=== PATIENT | female | born 1935 | race Caucasian/White ===

== ENCOUNTER → 2017-02-01 | Outpatient (CLI) | payer MEDICARE, BC ==
[~2017-02-01] MED LIST: UNABLE
== END ==
LOC: MC.RAD 15:10
DX: Z12.31 Encounter for screening mammogram for malignant neoplasm of breast (principal)

== ENCOUNTER → 2017-05-10 | Outpatient (CLI) | payer MEDICARE, BC | LOC: COL.RAD 07:54 | DX: J43.9 Emphysema, unspecified (principal); N28.1 Cyst of kidney, acquired; K57.30 Diverticulosis of large intestine without perforation or abscess without bleeding; Z96.641 Presence of right artificial hip joint | CPT/HCPCS: Q9967 ==

== ENCOUNTER → 2018-03-15 | Outpatient (CLI) | payer MEDICARE, BC | LOC: MC.RAD 09:00 | DX: Z12.31 Encounter for screening mammogram for malignant neoplasm of breast (principal) ==

== ENCOUNTER 2018-08-14 21:11 | Emergency (ER) | payer MEDICARE, BC ==
[~2018-08-14] VITALS: Ht 162.6 cm; Wt 60.5 kg
[2018-08-14 21:17] VITALS: TEMP 97.7
[2018-08-14 22:04] LABS: BASO # 0.1 (0.0-0.2); BASO % 0.7 % (0.0-2.0); EOS # 0.1 (0.0-0.7); EOS % 1.3 % (0-4.0); GRAN # 6.1 (1.4-6.5); GRAN % 73.8 % (42.2-75.2); HEMATOCRIT 42.5 % (37.0-47.0); HEMOGLOBIN 14.3 g/dl (12.5-16.0); LYMPH # 1.2 (1.2-3.4); LYMPH % 14.5 % (20.0-51.0); MEAN CELL VOLUME 95 fl (80.0-100.0); MEAN CORPUSCULAR HEMOGLOBIN 32 pg (27.0-31.0); MEAN CORPUSCULAR HGB CONC 34 g/dl (33.0-37.0); MEAN PLATELET VOLUME 9.2 fl (7.4-10.4); MONO # 0.8 (0.1-0.6); MONO % 9.3 % (1.7-9.3); PLATELET COUNT 201 K/mm3 (130-400); RED BLOOD COUNT 4.49 M/mm3 (4.10-5.30); REDCELL DISTRIBUTION WIDTH-CV 12.2 % (11.5-14.5)
[2018-08-14 22:14] LABS: PROTHROMBIN TIME 11.4 SECONDS (9.7-12.8)
[2018-08-14 22:17] LABS: ALANINE AMINOTRANSFERASE 33 U/L (9-52); ALKALINE PHOSPHATASE 39 U/L (50-136); ANION GAP 10 mmol/L (7-16); AST,SGOT 30 U/L (15-37); BILIRUBIN,TOTAL 0.3 mg/dL (0.0-1.0); BLOOD UREA NITROGEN 27 mg/dL (7-17); CALCIUM 9.3 mg/dL (8.4-10.2); CARBON DIOXIDE 34 mmol/L (22-30); CHLORIDE 94 mmol/L (98-107); CREATININE, serum 0.61 mg/dL (0.52-1.25); GLUCOSE 127 mg/dL (74-106); POTASSIUM 3.7 mmol/L (3.4-5.0); SODIUM 138 mmol/L (137-145); TOTAL PROTEIN 6.9 gm/dL (6.4-8.2)
[2018-08-14 22:41] LABS: TROPONIN-I < 0.012 ng/mL (0.000-0.034)
[2018-08-14] MEDS ORDERED: ATIVAN 0.50.5 MG/TAB PO (23:30)
[2018-08-14] MEDS ORDERED: ANORO IH (23:30)
[2018-08-15] MEDS ORDERED: ZOCOR 20MG20 MG PO (00:10)
[2018-08-15] MEDS ORDERED: DETROL 2MG TAB2 MG PO (00:10)
[2018-08-15] MEDS ORDERED: AMILORIDE/HCTZ1 TAB PO (00:10)
[2018-08-15] MEDS ORDERED: IMDUR 60MG60 MG/TAB PO (00:11)
[2018-08-15] MEDS ORDERED: CARDIZEM CD 18180 MG PO (00:11)
[2018-08-15] MEDS ORDERED: ULTRAM 50MG TAB50 MG PO (00:12)
[2018-08-15] MEDS ORDERED: FOSAMAX 70MG TA70 MG PO (00:12)
[2018-08-15 00:40] VITALS: BP 126/72; PULSE 86
== END 2018-08-15 00:53 | disposition home or self-care (01) ==
LOC: COL.ER 21:11
PROVIDERS: Emergency Medicine
DX: R53.81 Other malaise (principal); R53.83 Other fatigue; T42.4X5A Adverse effect of benzodiazepines, initial encounter; J44.9 Chronic obstructive pulmonary disease, unspecified; E78.5 Hyperlipidemia, unspecified; I10 Essential (primary) hypertension; I25.10 Atherosclerotic heart disease of native coronary artery without angina pectoris; Z98.890 Other specified postprocedural states
CPT/HCPCS: J7030

== ENCOUNTER → 2018-08-23 | Outpatient (CLI) | payer MEDICARE, BC ==
[~2018-08-23] MED LIST changes: +AMILORIDE/HCTZ1 TAB PO; +ANORO IH; +ATIVAN 0.50.5 MG/TAB PO; +CARDIZEM CD 18180 MG PO; +DETROL 2MG TAB2 MG PO; +FOSAMAX 70MG TA70 MG PO; +IMDUR 60MG60 MG/TAB PO; +ULTRAM 50MG TAB50 MG PO; +ZOCOR 20MG20 MG PO
== END ==
LOC: COL.RAD 10:50
DX: I67.1 Cerebral aneurysm, nonruptured (principal)
CPT/HCPCS: Q9967

== ENCOUNTER → 2019-02-11 | Outpatient (CLI) | payer MEDICARE, BC ==
[~2019-02-11] MED LIST changes: +ASPI325T6 PO; +CLARITIN-D 10 M1 T24 PO; +COLACE 100100 MG/CAP PO; +CRANBERRY FRUI425 MG PO; +K-DUR 10 MEQ T10 MEQ PO; +LANOXIN 0.120.125 MG PO; +LASIX 20MG TABL20 MG PO; +MASON NATURAL2000 IU PO; +MELATIN 3 MG-11 TAB PO; +THEO-24 20200 MG/CAP PO; +ZOCOR 40MG40 MG PO
== END ==
LOC: COL.CARD 08:20
DX: R55 Syncope and collapse (principal)

== ENCOUNTER 2019-02-26 07:26 | Inpatient (IN) | payer MEDICARE, BC ==
[~2019-02-26] VITALS: Ht 160 cm; Wt 53.2 kg
[2019-02-26] VITALS (20 sets, daily range): BP systolic 102–145; BP diastolic 41–110; PULSE 55–162; TEMP 98–98.4
[2019-02-26 08:15] LABS: HEMATOCRIT 45.7 % (37.0-47.0); HEMOGLOBIN 15.5 g/dl (12.5-16.0); MEAN CELL VOLUME 93 fl (80.0-100.0); MEAN CORPUSCULAR HEMOGLOBIN 31 pg (27.0-31.0); MEAN CORPUSCULAR HGB CONC 34 g/dl (33.0-37.0); MEAN PLATELET VOLUME 9.6 fl (7.4-10.4); PLATELET COUNT 217 K/mm3 (130-400); RED BLOOD COUNT 4.93 M/mm3 (4.10-5.30); REDCELL DISTRIBUTION WIDTH-CV 12.3 % (11.5-14.5)
[2019-02-26 08:19] LABS: INR 1.6 (0.8-3.0); PROTHROMBIN TIME 18.2 SECONDS (9.7-12.8)
[2019-02-26] MEDS ORDERED: OSCAL 500 TAB500 MG PO (08:25)
[2019-02-26] MEDS ORDERED: ASPI325T6 PO (08:25)
[2019-02-26] MEDS ORDERED: BIOTIN2500 MCG PO (08:26)
[2019-02-26] MEDS ORDERED: B-121000 MCG PO (08:27)
[2019-02-26] MEDS ORDERED: VITAMIN C500 MG PO (08:28)
[2019-02-26 08:29] LABS: CREATININE, serum 0.91 (0.52-1.25); POTASSIUM 3.2 mmol/L (3.4-5.0)
[2019-02-26 08:59] LABS: THYROID STIMULATING HORMONE 0.192 uIU/mL (0.465-4.680)
[2019-02-26 09:21] LABS: ALBUMIN 4.2 gm/dL (3.5-5.0); BILIRUBIN UNCONJUGATED 0.6 mg/dL (0.0-1.1); BILIRUBIN,DIRECT 0.1 mg/dL (0.0-0.4); BILIRUBIN,TOTAL 0.7 mg/dL (0.0-1.0); TOTAL PROTEIN 7.5 gm/dL (6.4-8.2)
--- NOTE | 2019-02-26 11:00 | NUR ---
Fatoumata GARCIA recieved call fro Telemetry of pt pulse rate in 150's. Betapace had been given 20 minutes prior. Pt sitting up in bed . Denies distress. Checked all connections on pulse monitor.
--- NOTE | 2019-02-26 11:20 | NUR ---
Telemetry called and pulse rate unchanged , remains 130' to 160's. Notifing Dr. Ellis.
--- NOTE | 2019-02-26 11:35 | NUR ---
240 mg Cardizem CD given. Will continue to monitor.
--- NOTE | 2019-02-26 12:05 | NUR ---
Pulse rate down to 89 bpm. Will continue to monitor
--- NOTE | 2019-02-26 14:34 | NUR ---
RECEIVED REPORT FROM JOSE DESIR.
--- NOTE | 2019-02-26 14:53 | NUR ---
PT ARRIVED TO ROOM VIA WHEELCHAIR,ACCOMAPNIED BY SHARIF AND JOSE DESIR.PT RESTING IN BED AT THIS TIME.CALL LIGHT IN PLACE.
--- NOTE | 2019-02-26 14:53 | NUR ---
Report given to Bhavana GARCIA. Transferred to Room 309 by wc on telemetry
--- NOTE | 2019-02-26 17:03 | NUR ---
ASSESSMENT COMPLETE,PATIENT AWAKE,A/OX4.DENIES PAIN OR DISCOMFORT AT THIS TIME.LUNG SOUNDS DIMINISHED THROUGHOUT.PULSES PRESENT AND PALPABLE.IV TO RAC INT.PT ON TELE RUNNING SINUS RYTHM AT THIS TIME.STARTED ON SOTALOL D/T FAILED CARDIOVERSION.PT IS AMBULATORY.SBA.ALL MEDS GIVEN.DENIES ANY NEED AT THIS TIME.WILL CONTINUE TO MONITOR.CALL LIGHT IN REACH
--- NOTE | 2019-02-26 19:39 | NUR ---
REPORT GIVEN TO JOSE LOCK
--- NOTE | 2019-02-26 20:15 | NUR ---
Shift assessment complete. Pt resting in bed, awake, a&o, cooperative c cares. Da at bedside. Pt c/o chronic back pain; PRN Tramadol admin per pt request. Denies any other c/o. INT patent. Tele in place. Pt s needs. Call light in reach, will monitor.
[2019-02-26 22:31] LABS: PH 6 (5-8); SQUAMOUS EPITHELIAL 0-2 /hpf; URINE APPEARANCE Clear; URINE BACTERIA None Seen /hpf; URINE BILIRUBIN Negative (NEGATIVE); URINE BLOOD Negative (NEGATIVE); URINE COLOR Yellow; URINE GLUCOSE Negative (NEGATIVE); URINE KETONE Negative (NEGATIVE); URINE LEUKOCYTE ESTERASE Negative (NEGATIVE); URINE NITRATE Negative (NEGATIVE); URINE PROTEIN(semi-quant) Negative (NEGATIVE); URINE RBC 0-2 /hpf; URINE UROBILINOGEN Negative (NEGATIVE)
[2019-02-26 22:57] LABS: COLLECTION METHOD CLEAN CATCH
[2019-02-27 03:47] VITALS: BP 109/50; PULSE 54; TEMP 97.6
[2019-02-27 06:47] LABS: BASO # 0.1 (0.0-0.2); BASO % 0.4 % (0.0-2.0); EOS # 0.1 (0.0-0.7); EOS % 0.6 % (0-4.0); GRAN # 11.6 (1.4-6.5); GRAN % 81.5 % (42.2-75.2); HEMATOCRIT 39.6 % (37.0-47.0); LYMPH # 1.4 (1.2-3.4); MEAN CELL VOLUME 93 fl (80.0-100.0); MEAN CORPUSCULAR HEMOGLOBIN 31 pg (27.0-31.0); MEAN CORPUSCULAR HGB CONC 34 g/dl (33.0-37.0); MEAN PLATELET VOLUME 9.6 fl (7.4-10.4); MONO % 7.1 % (1.7-9.3); PLATELET COUNT 199 K/mm3 (130-400); RED BLOOD COUNT 4.28 M/mm3 (4.10-5.30); REDCELL DISTRIBUTION WIDTH-CV 12.3 % (11.5-14.5)
[2019-02-27 06:51] LABS: HEMOGLOBIN 13.4 g/dl (12.5-16.0)
[2019-02-27 07:01] LABS: ALBUMIN 3.5 gm/dL (3.5-5.0); BILIRUBIN,TOTAL 0.6 mg/dL (0.0-1.0); CALCIUM 9.7 mg/dL (8.4-10.2); CREATININE, serum 0.82 (0.52-1.25); MAGNESIUM 1.7 mg/dL (1.6-2.3); POTASSIUM 3.2 mmol/L (3.4-5.0); TOTAL PROTEIN 6.3 gm/dL (6.4-8.2)
[2019-02-27 07:21] VITALS: BP 122/54; PULSE 54; TEMP 97.7
--- NOTE | 2019-02-27 10:00 | NUR ---
Patient assessment complete. Patient laying in bed upon entry. Lung sounds diminished throughout. Heart sounds normal, bradycardia, asymptomatic. Pulses strong bilaterally. Bowel sounds present X4. Patient denies SOB, chest pain, dizziness, N/V. patient is A&O. INT RAC shows no redness, drainage or edema. Overall, patient is agitated with stay and how it is progressing. Patient asked multiple times when she would get her morning inhaler. This nurse called RT, Ora, I was informed she was waiting on pharmacy to bring up inhaler after labeling. Patient was not satisfied with answer. Morning meds were late due to waiting on ECG for QTC. heart rate was high 40s, low 50s. Confirmed with Dr. Ellis to give sotalol. Tele parameters were changed, notify if below 30. Dr. Ellis in room to talk to patient. Denies other needs at this time.
--- NOTE | 2019-02-27 11:34 | NUR ---
EMY met with the patient and patient's friend, Cyndy, to discuss discharge plan. The patient lives alone in [place]. She states that her daughter, Breanne, lives in town. She reports independence with ADLs and has a walker. The patient's PCP is Dr. Yevgeniy Santos and she receives her medications at [facility]. She reports no difficulties obtaining her meds. The patient's friend provided EMY with the patient's DPOA-HC and living will. EMY placed a copy of them in her chart. The patient plans to return home upon discharge and then travel down to [place] to see her son. No additional needs at this time.
[2019-02-27 11:42] VITALS: BP 128/44; PULSE 96; TEMP 98.3
--- NOTE | 2019-02-27 12:45 | NUR ---
Patient had loop recorder placed by Dr. Ellis. Site is covered with gauze, CDI, no bleeding. Denies other needs at this time.
--- NOTE | 2019-02-27 14:45 | NUR ---
Initial visit; Patient and family thanked [employer] for looking in on her, offering encouragement and prayer.
[2019-02-27 16:03] VITALS: BP 110/50; PULSE 108; TEMP 98.4
[2019-02-27 19:01] VITALS: BP 121/47; PULSE 55; TEMP 97.1
--- NOTE | 2019-02-27 19:06 | NUR ---
Patient laying in bed, eating dinner. Patient has had uneventful day after loop recorder placement. No complaints of pain, requested warm blankets and napped this afternoon. Family in and out of room. Loop recorder site is CDI, no bleeding. Denies other needs at this time. Report given to JOSE Demarco.
[2019-02-27 23:20] VITALS: BP 109/44; PULSE 52; TEMP 98.5
--- NOTE | 2019-02-27 23:25 | NUR ---
Completed medication administration and assessment; PT A&Ox4, BS active x4, continues 3L O2 via NC, initated Eliquist VTE, provided requested Melatonin 3mg at HS per request, cardioversion unsuccessful x3; Continues Sotalol, Day 2; PT denies pain at time of assessment; No further assessment or reported needs at time of exit; PT assisted to comfortable position in bed with personal items and call light within reach; Will continue to monitor. CDA
--- NOTE | 2019-02-28 02:05 | NUR ---
PT resting well in bed; No further assessed concerns during rounds throughout the evening; PT in a comfortable position with personal items and call light within reach; Will continue to monitor. CDA
[2019-02-28 03:58] VITALS: BP 138/61; PULSE 53; TEMP 98
[2019-02-28 05:59] LABS: BASO # 0.1 (0.0-0.2); BASO % 0.4 % (0.0-2.0); EOS # 0.1 (0.0-0.7); EOS % 1.2 % (0-4.0); GRAN # 9.3 (1.4-6.5); GRAN % 77.9 % (42.2-75.2); HEMATOCRIT 39.7 % (37.0-47.0); HEMOGLOBIN 13.4 g/dl (12.5-16.0); LYMPH # 1.3 (1.2-3.4); LYMPH % 10.5 % (20.0-51.0); MEAN CELL VOLUME 93 fl (80.0-100.0); MEAN CORPUSCULAR HEMOGLOBIN 31 pg (27.0-31.0); MEAN CORPUSCULAR HGB CONC 34 g/dl (33.0-37.0); MEAN PLATELET VOLUME 9.6 fl (7.4-10.4); MONO # 1.1 (0.1-0.6); MONO % 9.6 % (1.7-9.3); PLATELET COUNT 193 K/mm3 (130-400); RED BLOOD COUNT 4.27 M/mm3 (4.10-5.30)
[2019-02-28 06:12] LABS: CALCIUM 9.2 mg/dL (8.4-10.2); CREATININE, serum 0.76 (0.52-1.25); MAGNESIUM 1.7 mg/dL (1.6-2.3)
--- NOTE | 2019-02-28 06:55 | NUR ---
Report received from JOSE Demarco.
--- NOTE | 2019-02-28 06:55 | NUR ---
Report given to JOSE Boyd; No significant changes or concerns at time of shift change. CDA
[2019-02-28 07:47] VITALS: BP 130/49; PULSE 59; TEMP 97.3
--- NOTE | 2019-02-28 08:00 | NUR ---
Assessment completed. Pt finished her breakfast. No complaints at this time. Drsg on chest c/d/i. Discussed POC r/t all meds this shift. Pt verbalized understanding. Call light in reach.
[2019-02-28 11:10] VITALS: BP 112/44; PULSE 49; TEMP 97.5
--- NOTE | 2019-02-28 11:30 | NUR ---
Pt's son at bedside. Updated on pt status. Pt refused bath at this time. Would like to wait for Production Tech to see if she will be discharged today. Pt ordered lunch. C/o some anxiety. States she takes ativan at home.
--- NOTE | 2019-02-28 12:40 | NUR ---
Pt finishing lunch. Pt's son at bedside. Pt states she feels fine after prn ativan given. Call light in reach.
[2019-02-28] MEDS ORDERED: ELIQUIS 2.5 PO (14:55)
[2019-02-28] MEDS ORDERED: NORVASC 5MG5 MG/TAB PO (14:57)
--- NOTE | 2019-02-28 17:00 | NUR ---
Dicharge paperwork discussed with pt and pt's son. Answered all questions to pt's satisfaction. Pt signed discharge papers. heart monitor leads taken off pt. Pt left unit, with son, to private vehicle via wheelchair.
== END 2019-02-28 17:00 | disposition home or self-care (01) | DRG 261 ==
LOC: COL.CAR 07:26 → MEDICAL 14:53 → COL.CAR 15:19 → MEDICAL 15:20
PROVIDERS: Nurse Practitioner; Physician Assistant; ADMIT Internal Medicine Cardiovascular Disease
PROC: 5A2204Z Restoration of Cardiac Rhythm, Single (ICD-10-PCS; 2019-02-26)
PROC: 0JH602Z Insertion of Monitoring Device into Chest Subcutaneous Tissue and Fascia, Open Approach (ICD-10-PCS; principal; 2019-02-27)
DX: I48.0 Paroxysmal atrial fibrillation (principal); R64 Cachexia; E46 Unspecified protein-calorie malnutrition; E87.1 Hypo-osmolality and hyponatremia; Z68.20 Body mass index [BMI] 20.0-20.9, adult; Z66 Do not resuscitate; I10 Essential (primary) hypertension; E78.5 Hyperlipidemia, unspecified; J44.9 Chronic obstructive pulmonary disease, unspecified; Z87.891 Personal history of nicotine dependence; I25.10 Atherosclerotic heart disease of native coronary artery without angina pectoris; E87.6 Hypokalemia; F41.9 Anxiety disorder, unspecified; G89.29 Other chronic pain; I27.20 Pulmonary hypertension, unspecified
CPT/HCPCS: 99223; J2704

== ENCOUNTER 2021-05-07 10:12 | Day surgery (SDC) | payer MEDICARE, BC ==
[~2021-05-07] VITALS: Ht 157.6 cm; Wt 53.0 kg
[~2021-05-07 10:12] MED LIST changes: +ASPIRIN 81M81 MG/TA2 PO; +B-121000 MCG PO; +BETAPACE 120MG120 MG PO; +BIOTIN2500 MCG PO; +CELEXA 20MG20 MG/TAB PO; +ELIQUIS 2.5 PO; +LIPITOR 40MG TA40 MG PO; +NORVASC 5MG5 MG/TAB PO; +OSCAL 500 TAB500 MG PO; +PROAIR HFA0.09 MG/AC IH; +VITAMIN C500 MG PO
[2021-05-07 11:36] VITALS: BP 147/69; PULSE 57; TEMP 97
[2021-05-07 12:00] VITALS: BP 142/68; PULSE 65
[2021-05-07] MEDS ORDERED: CEPHALEXIN500 M1 PO (12:38)
[2021-05-07 12:45] VITALS: BP 138/58; PULSE 66
--- NOTE | 2021-05-07 12:45 | NUR ---
PT RETURNED FROM [employer] VIA BED, HAS DRESSING OVER UPPER CHEST, DRY AND INTACT. 02 ON. HOB ELEVATED, FAMILY IN ROOM
[2021-05-07 13:00] VITALS: BP 143/58; PULSE 64
--- NOTE | 2021-05-07 13:00 | NUR ---
SWELLING NOTED AROUND DRESSING, DRESSING WITH BLOOD OVER MOST OF IT. PRESSURE APPLIED TO AREA BY DANIAL RN FOR 8 MIN. AFTER PRESSURE, DRESSING WAS CHANGED BY NURSE. DR SMITH IN LATER TO EVALUATE AREA
[2021-05-07 13:15] VITALS: BP 133/56; PULSE 65
--- NOTE | 2021-05-07 13:15 | NUR ---
DRESSING REMAINS DRY, NO FURTHER SWELLING, FAMILY IN ROOM, SIPS ON WATER
[2021-05-07 13:30] VITALS: BP 112/66; PULSE 72
--- NOTE | 2021-05-07 13:30 | NUR ---
REVIEWED DISCHARGE INST. WITH PT AND FAMILY, SON HAS NUMBERS TO CALL FOR LOOP ON PHONE, NEW RX SENT TO [facility] AND WOUND CHECK APPT MADE, REVIEWED CARE OF SITE WITH PT AND PRECAUTIONS WITH VERBAL UNDERSTANDING. IV D'CD, PT SITS ON SIDE OF BED, FAMILY HELPED DRESS, DISCHARGED AT 1400 VIA W/C TO CAR
== END 2021-05-07 14:00 | disposition home or self-care (01) ==
LOC: COL.CAR 10:12
DX: Z45.09 Encounter for adjustment and management of other cardiac device (principal); I48.0 Paroxysmal atrial fibrillation; J44.9 Chronic obstructive pulmonary disease, unspecified; I11.0 Hypertensive heart disease with heart failure; I50.30 Unspecified diastolic (congestive) heart failure; I27.20 Pulmonary hypertension, unspecified; E78.5 Hyperlipidemia, unspecified; I34.0 Nonrheumatic mitral (valve) insufficiency; I35.1 Nonrheumatic aortic (valve) insufficiency; L76.22 Postprocedural hemorrhage of skin and subcutaneous tissue following other procedure; Z79.899 Other long term (current) drug therapy; Z79.01 Long term (current) use of anticoagulants; Z87.891 Personal history of nicotine dependence; Z99.81 Dependence on supplemental oxygen; Z86.73 Personal history of transient ischemic attack (TIA), and cerebral infarction without residual deficits
CPT/HCPCS: C1764; J1644; J2250; J3010